=== PATIENT | female | born 1995 | race Caucasian/White ===

== ENCOUNTER 2024-07-17 14:59 | Emergency (ER) | payer MEDICAID ==
[~2024-07-17] VITALS: Ht 154.9 cm; Wt 100.0 kg
[2024-07-17] MEDS ORDERED: dexamethasone 4mg tablet PO ONE (15:20)
[2024-07-17] MEDS: dexamethasone sod phosphate 10mg/ml inj PO ONE (15:25)
[2024-07-17] MEDS: ondansetron 4mg rapidly disintigrating tab PO ONE (16:02)
[2024-07-17 16:05] VITALS: BP 122/97; PULSE 78; RESP 16; TEMP 98.1; O2SAT 99
== END 2024-07-17 16:06 | disposition home or self-care (01) ==
LOC: ER 15:00
DX: L25.8 Unspecified contact dermatitis due to other agents (principal); T39.315A Adverse effect of propionic acid derivatives, initial encounter; Y92.89 Other specified places as the place of occurrence of the external cause
CPT/HCPCS: 82948; 99284; J1100; J7030; A4620